=== PATIENT | male | born 1935 | race Caucasian/White ===

== ENCOUNTER 2018-05-10 14:40 | Inpatient (IN) | payer MEDICARE, BC ==
[~2018-05-10] VITALS: Ht 185.4 cm; Wt 113.2 kg
[~2018-05-10 14:40] MED LIST: ASPIRIN 81M81 MG/TA2 PO; BRILINTA90 MG PO; COZAAR 50MG50 MG/TAB PO; LASIX 20MG TABL20 MG PO; LIPITOR 40MG TA40 MG PO; PRESERVISION1 SGL PO; RAPAFLO4 MG PO; RAPAFLO8 MG PO; TOPROL XL 50MG50 MG PO
[2018-05-23 08:04] VITALS: BP 116/61; PULSE 95; TEMP 98.1
[2018-05-23 08:24] LABS: BASO # 0.1 (0.0-0.2); BASO % 0.7 % (0.0-2.0); EOS # 0.5 (0.0-0.7); EOS % 4.8 % (0-4.0); GRAN # 5.1 (1.4-6.5); GRAN % 50.4 % (42.2-75.2); HEMATOCRIT 46.1 % (42.0-52.0); HEMOGLOBIN 15.7 g/dl (13.5-18.0); LYMPH # 3.5 (1.2-3.4); LYMPH % 34.8 % (20.0-51.0); MEAN CELL VOLUME 93 fl (80.0-100.0); MEAN CORPUSCULAR HEMOGLOBIN 32 pg (27.0-31.0); MEAN CORPUSCULAR HGB CONC 34 g/dl (33.0-37.0); MEAN PLATELET VOLUME 9.6 fl (7.4-10.4); MONO # 0.9 (0.1-0.6); PLATELET COUNT 189 K/mm3 (130-400); RED BLOOD COUNT 4.96 M/mm3 (4.20-5.60); REDCELL DISTRIBUTION WIDTH-CV 12.9 % (11.5-14.5)
[2018-05-23 08:32] LABS: INR 1.3 (0.8-3.0); PROTHROMBIN TIME 15.2 SECONDS (9.7-12.8)
[2018-05-23 08:37] LABS: ALBUMIN 3.8 gm/dL (3.5-5.0); BILIRUBIN,TOTAL 1.1 mg/dL (0.0-1.0); CALCIUM 9.1 mg/dL (8.4-10.2); CREATININE, serum 1.02 mg/dL (0.66-1.25); MAGNESIUM 1.9 mg/dL (1.6-2.3); POTASSIUM 4.4 mmol/L (3.4-5.0); TOTAL PROTEIN 6.9 gm/dL (6.4-8.2)
[2018-05-23] MEDS ORDERED: ELIQUIS 5MG PO (09:17)
[2018-05-23] MEDS ORDERED: NITROSTAT0.4 MG/TAB SL (09:18)
[2018-05-23] MEDS ORDERED: CARTIA XT240 MG PO (09:18)
[2018-05-23 12:18] VITALS: BP 110/55; PULSE 48; TEMP 98.4
[2018-05-23 17:07] VITALS: BP 117/65; PULSE 71; TEMP 97.3
[2018-05-23 20:20] VITALS: BP 125/75; PULSE 93; TEMP 97.5
[2018-05-24] VITALS (12 sets, daily range): BP systolic 101–121; BP diastolic 53–80; PULSE 52–91; TEMP 97.4–98.3
[2018-05-25] VITALS (11 sets, daily range): BP systolic 91–116; BP diastolic 46–82; PULSE 52–92; TEMP 97.6
[2018-05-25 06:55] LABS: CALCIUM 8.9 mg/dL (8.4-10.2); CREATININE, serum 0.85 mg/dL (0.66-1.25)
[2018-05-25] MEDS ORDERED: BETAPACE 80MG80 MG PO (10:54)
== END 2018-05-25 15:45 | disposition home or self-care (01) | DRG 310 ==
LOC: MEDICAL 05-23 07:45
PROVIDERS: Internal Medicine Cardiovascular Disease; Nurse Practitioner
PROC: 5A2204Z Restoration of Cardiac Rhythm, Single (ICD-10-PCS; principal; 2018-05-25)
DX: I48.0 Paroxysmal atrial fibrillation (principal); I10 Essential (primary) hypertension; I25.10 Atherosclerotic heart disease of native coronary artery without angina pectoris; Z95.5 Presence of coronary angioplasty implant and graft
CPT/HCPCS: A9502; J2250; J2785; J3010

== ENCOUNTER → 2019-05-22 | Outpatient (CLI) | payer MEDICARE, BC ==
[~2019-05-22] MED LIST changes: +BETAPACE 80MG80 MG PO; +CARTIA XT240 MG PO; +ELIQUIS 5MG PO; +NITROSTAT0.4 MG/TAB SL
== END ==
LOC: ZCOL.LAB 16:25
DX: H92.12 Otorrhea, left ear (principal)